=== PATIENT | male | born 1945 ===

== ENCOUNTER 2017-05-09 10:03 | Inpatient (IN) | payer MEDICARE ==
[2017-05-09] MEDS ORDERED: Iodixanol 320 MG/ML 100 ML BOTTLE IV ONE (10:44)
--- NOTE | 2017-05-09 10:50 | C.PDOC ---
History Of Present Illness 72 yr old male brought in via BLS, presents to the ER s/p an episode of confusion. According to family members, around 9:30am patient fell to the ground and became confused. Patient has history of high blood pressure, diabetes and was recently diagnosed with dementia. Upon arrival, patient appeared confused with expressive aphasia, mumbling words with right facial droop. Patient is moving all extremities. Code stroke was called. DR. Franklin suggested CT of head and CTA of head and neck. ROS was unable to be obtained. Time Seen by Provider: 05/09/17 10:09 Chief Complaint (Nursing): Altered Mental Status History Per: EMS, Family History/Exam Limitations: Clinical Condition Onset/Duration Of Symptoms: Sudden Onset Past Medical History Reviewed: Historical Data, Nursing Documentation, Vital Signs Vital Signs: Last Vital Signs Temp 97.2 F L 05/10/17 15:27 Pulse 73 05/10/17 15:27 Resp 20 05/10/17 15:27 BP 143/65 05/10/17 15:27 Pulse Ox 100 05/10/17 15:27 Family History: States: No Known Family Hx - Social History Hx Alcohol Use: (UNOBTAINABLE) Hx Substance Use: (UNOBTAINABLE) - Immunization History Hx Tetanus Toxoid Vaccination: (UNOBTAINABLE) Hx Influenza Vaccination: (UNOBTAINABLE) Hx Pneumococcal Vaccination: (UNOBTAINABLE) Review Of Systems Review Of Systems: ROS cannot be obtained secondary to pt's inabilty to answer questions. Physical Exam - Physical Exam Appears: Non-toxic, No Acute Distress, Other ((+) Right facial droop) Skin: Warm, Dry Head: Atraumatic, Normacephalic Cardiovascular: Rhythm Regular, No Murmur Respiratory: Normal Breath Sounds, No Rales, No Rhonchi, No Stridor, No Wheezing Extremity: Normal ROM, No Swelling Neurological/Psych: Inappropriate Response To Command, Expressive Aphasia ED Course And Treatment - Laboratory Results Result Diagrams: 05/09/17 11:09 05/10/17 07:23 ECG: Interpreted By Me, Viewed By Me ECG Rhythm: Sinus Rhythm ECG Interpretation: Normal Interpretation Of ECG: Normal intervals. Normal axis. No ST/T wave abnormalities. Rate From EC (BPM) - Other Rad CXR X-Ray: Viewed By Me, Read By Radiologist Interpretation: HISTORY: stroke. COMPARISON: None available. TECHNIQUE: Chest, one view. FINDINGS: Examination limited by habitus. LUNGS: No focal consolidation. Please note that chest x-ray has limited sensitivity for the detection of pulmonary masses. PLEURA: No significant pleural effusion identified. No definite pneumothorax . CARDIOVASCULAR: Heart size appears within normal limits. OSSEOUS STRUCTURES: Osseous demineralization. Degenerative changes of the spine and shoulders. Acromioclavicular arthropathy. VISUALIZED UPPER ABDOMEN: Unremarkable. OTHER FINDINGS: None. IMPRESSION: No focal consolidation, significant pleural effusion, or definite pneumothorax identified. - CT Scan/US CT - Head Other Rad Studies (CT/US): Read By Radiologist, Radiology Report Reviewed CT/US Interpretation: PROCEDURE: CT HEAD WITHOUT CONTRAST. HISTORY: Code Stroke. COMPARISON: None available. TECHNIQUE: Axial computed tomography images were obtained through the head/brain without intravenous contrast. Radiation dose: Total exam DLP = 3048.50 mGy-cm. This CT exam was performed using one or more of the following dose reduction techniques: Automated exposure control, adjustment of the mA and/or kV according to patient size, and/ or use of iterative reconstruction technique. Please note that due to patient motion artifact, the patient was scanned utilizing healed technique. Three separate runs were performed to accommodate for patient motion artifact. FINDINGS: HEMORRHAGE: No intracranial hemorrhage. BRAIN: No mass effect or edema. Mild diffuse atrophy consistent with patient age. No evidence of acute infarct. VENTRICLES: Unremarkable. No hydrocephalus. CALVARIUM: Unremarkable. PARANASAL SINUSES: Chronic sphenoid sinusitis. Left maxillary retention cyst/polyp. MASTOID AIR CELLS: Hypoplastic mastoid air cells. OTHER FINDINGS: None. IMPRESSION: No intracranial mass, hemorrhage or evidence of acute infarct. Limited examination due to patient motion and the necessity of utilizing helical technique. Age related atrophy. Chronic paranasal sinusitis and left maxillary of small retention cyst/polyp. Findings were discussed with Dr. Alvarado at 10:45 a.m. on 05/09/2017. CTA - Head & Neck Other Rad Studies (CT/US): Read By Radiologist, Radiology Report Reviewed CT/US Interpretation: PROCEDURE: CT Angiography of the Brain. HISTORY: stroke. COMPARISON: None available. TECHNIQUE: CT angiography of the intracranial arteries was performed. Coronal and sagittal maximum intensity projection reformated images were generated. This CT exam was performed using one or more of the following dose reduction techniques: Automated exposure control, adjustment of the mA and/or kV according to patient size, and/or use of iterative reconstruction technique. FINDINGS: INTERNAL CEREBRAL ARTERIES: Limited atherosclerotic plaque is seen in the cavernous internal carotid artery segments, right greater than left. The skull base, petrous, cavernous and supraclinoid segments are bilaterally patent. ANTERIOR CEREBRAL ARTERIES: Unremarkable. A1 and A2 segments are widely patent. Smaller distal branches unremarkable, as visualized. MIDDLE CEREBRAL ARTERIES: Unremarkable. M1 and M2 segments are widely patent. Perisylvian branches grossly symmetric. POSTERIOR CIRCULATION: Basilar Artery: Unremarkable. Distal Vertebral Arteries : Unremarkable. Posterior Cerebral Arteries: Unremarkable. Posterior Inferior Cerebellar Arteries: Unremarkable. NECK CTA RESULTS: Common carotid arteries: The bilateral common carotid appear widely patent from their origins to their bifurcations with no significant stenosis appreciated. No evidence to suggest common carotid artery dissection. Internal carotid arteries: No significant stenosis is appreciated throughout the cervical internal carotid artery segments bilaterally and there is no evidence of dissection either. Limited atherosclerotic plaque is seen at the origin of the left external carotid artery with none on the right. Vertebral arteries: The bilateral vertebral arteries appear normal in caliber from their origins to their junction with the basilar artery. Vertebrobasilar system appears neutral in dominance. No significant stenosis or definite pattern of dissection. Incidentally, the bilateral subclavian arteries are widely patent as well as the brachiocephalic artery. ANEURYSM/ VASCULAR MALFORMATIONS: None. OTHER FINDINGS: None. IMPRESSION: No significant stenosis is appreciated throughout the CT angiogram of the brain and neck. No definite arteriovascular malformation or aneurysm identified. NIHSS Stroke Scale - Date/Time Evaluation Performed Date Performed: 05/09/17 Time Performed: 10:15 When Was NIHSS Performed: Baseline - How Severe is the Stoke Level of Consciousness: 0=Alert LOC to Questions: 2=Neither correct LOC to commands: 2=Neither correct Best Gaze: 0=Normal Visual: 0=No visual loss Facial: 1=Minor asymmetry Motor Arm - Left: 0=No drift Motor Arm - Right: 0=No drift Motor Leg - Left: 0=No drift Motor Leg - Right: 0=No drift Limb Ataxia: 0=Absent Sensory: 0=Normal Best Language: 2=Severe aphasia Dysarthia: 1=Mild to moderate slurring Extinction & Inattention (Neglect): 0=Normal, no object Score: 8 Severity Of Stroke: 5-15= Moderate Stroke rTPA Inclusion/Exclusion - Refusal of Treatment Patient Refused Treatment: No - Inclusion Criteria for Altepase Patient is 18 years or Older: Yes Clinical DX Ischemic Stroke Cause Neurological Deficit: Yes Time of Onset Established Less Than 270 Mins Before TX Begin: Yes Risk/Benefit Discussed With Patient/Family Member Present: Yes - Exclusion Criteria for Altepase Uncontrolled Hypertension at Time of TX (SBP>185 or DBP>110): No Active Internal Bleeding: No Known Bleeding Diathesis: No Evidence Major Acute Infarct w/ Signs Greater Than 1/3 MCA: No Suspicion of Subarachnoid Bleed on PreTX Eval(CT: neg bleed): No - Warning to TPA With Conditions Following Conditions Weighed Against Anticipated Benefit: Yes Condition: Rapid Improvement, Seizure at Onset of Stroke Medical Decision Making Medical Decision Making: IMPRESSION: Seizure PLAN: * CT - Head * CTA - Head & Neck * CXR * EKG * Troponin * CBC * CMP * Ativan IVP * Haldol IVP * Keppra IVPB * Dextrose IVPB NOTE: * DR. Franklin came down to evaluate patient and requested patient to be started on Keppra 1000 mg IV and not a TPA condidate at the present time. * DR. Franklin believes patient had a seizure. Disposition Discussed With : Charlie Ferrari Doctor Will See Patient In The: Hospital Counseled Patient/Family Regarding: Studies Performed, Diagnosis, Need For Followup - Disposition Disposition: HOSPITALIZED Disposition Time: 13:49 Condition: FAIR - Clinical Impression Clinical Impression: Seizure, Syncope - Scribe Statement The provider has reviewed the documentation as recorded by the Nathanael Reyes Provider Attestation: All medical record entries made by the Nathanael were at my direction and personally dictated by me. I have reviewed the chart and agree that the record accurately reflects my personal performance of the history, physical exam, medical decision making, and the department course for this patient. I have also personally directed, reviewed, and agree with the discharge instructions and disposition.
--- NOTE | 2017-05-09 11:11 | CT ---
PROCEDURE: CT HEAD WITHOUT CONTRAST. HISTORY: Code Stroke COMPARISON: None available. TECHNIQUE: Axial computed tomography images were obtained through the head/brain without intravenous contrast. Radiation dose: Total exam DLP = 3048.50 mGy-cm. This CT exam was performed using one or more of the following dose reduction techniques: Automated exposure control, adjustment of the mA and/or kV according to patient size, and/or use of iterative reconstruction technique. Please note that due to patient motion artifact, the patient was scanned utilizing healed technique. Three separate runs were performed to accommodate for patient motion artifact. FINDINGS: HEMORRHAGE: No intracranial hemorrhage. BRAIN: No mass effect or edema. Mild diffuse atrophy consistent with patient age. No evidence of acute infarct. VENTRICLES: Unremarkable. No hydrocephalus. CALVARIUM: Unremarkable. PARANASAL SINUSES: Chronic sphenoid sinusitis. Left maxillary retention cyst/polyp. MASTOID AIR CELLS: Hypoplastic mastoid air cells. OTHER FINDINGS: None. IMPRESSION: No intracranial mass, hemorrhage or evidence of acute infarct. Limited examination due to patient motion and the necessity of utilizing helical technique. Age related atrophy. Chronic paranasal sinusitis and left maxillary of small retention cyst/polyp. Findings were discussed with Dr. Alvarado at 10:45 a.m. on 05/09/2017.
[2017-05-09 11:15] LABS: BASO % 0.5 % (0.0-2.0); EOS % 0.5 % (0.0-4.0); LYMPH # 1.1 K/uL (1.0-4.3); LYMPH % 18.5 % (20.0-40.0); MEAN CELL VOLUME 92.9 fL (80.0-94.0); MEAN CORPUSCULAR HEMOGLOBIN 30.3 pg (27.0-31.0); MEAN CORPUSCULAR HGB CONC 32.6 g/dL (33.0-37.0); MEAN PLATELET VOLUME 8.6 fL (7.2-11.7); MONO # 0.5 K/uL (0.0-0.8); MONO % 7.5 % (0.0-10.0); RED CELL DISTRIBUTION WIDTH 14.2 % (11.5-14.5)
--- NOTE | 2017-05-09 11:21 | RAD ---
HISTORY: stroke COMPARISON: None available. TECHNIQUE: Chest, one view. FINDINGS: Examination limited by habitus. LUNGS: No focal consolidation. Please note that chest x-ray has limited sensitivity for the detection of pulmonary masses. PLEURA: No significant pleural effusion identified. No definite pneumothorax . CARDIOVASCULAR: Heart size appears within normal limits. OSSEOUS STRUCTURES: Osseous demineralization. Degenerative changes of the spine and shoulders. Acromioclavicular arthropathy. VISUALIZED UPPER ABDOMEN: Unremarkable. OTHER FINDINGS: None. IMPRESSION: No focal consolidation, significant pleural effusion, or definite pneumothorax identified.
[2017-05-09 11:30] LABS: ALB/GLOB RATIO 1.5 (1.0-2.1); ALKALINE PHOSPHATASE 58 U/L (38-126); ALT/SGPT 37 U/L (21-72); AST/SGOT 26 U/L (17-59); BILIRUBIN,TOTAL 0.5 mg/dL (0.2-1.3); BLOOD UREA NITROGEN 40 mg/dL (9-20); CALCIUM 8.6 mg/dl (8.6-10.4); CARBON DIOXIDE 22 mmol/L (22-30); CHLORIDE 103 mmol/L (98-107); GFR AFRICAN-AMERICAN > 60; GLUCOSE,RANDOM 126 mg/dL (75-110); POTASSIUM 4.1 mmol/L (3.6-5.2); SODIUM 134 mmol/L (132-148); TOTAL PROTEIN 5.7 g/dL (6.3-8.3)
--- NOTE | 2017-05-09 11:45 | CT ---
PROCEDURE: CT Angiography of the Brain. HISTORY: stroke COMPARISON: None available. TECHNIQUE: CT angiography of the intracranial arteries was performed. Coronal and sagittal maximum intensity projection reformated images were generated. This CT exam was performed using one or more of the following dose reduction techniques: Automated exposure control, adjustment of the mA and/or kV according to patient size, and/or use of iterative reconstruction technique. FINDINGS: INTERNAL CEREBRAL ARTERIES: Limited atherosclerotic plaque is seen in the cavernous internal carotid artery segments, right greater than left. The skull base, petrous, cavernous and supraclinoid segments are bilaterally patent. ANTERIOR CEREBRAL ARTERIES: Unremarkable. A1 and A2 segments are widely patent. Smaller distal branches unremarkable, as visualized. MIDDLE CEREBRAL ARTERIES: Unremarkable. M1 and M2 segments are widely patent. Perisylvian branches grossly symmetric. POSTERIOR CIRCULATION: Basilar Artery: Unremarkable. Distal Vertebral Arteries: Unremarkable. Posterior Cerebral Arteries: Unremarkable. Posterior Inferior Cerebellar Arteries: Unremarkable. NECK CTA RESULTS: Common carotid arteries: The bilateral common carotid appear widely patent from their origins to their bifurcations with no significant stenosis appreciated. No evidence to suggest common carotid artery dissection. Internal carotid arteries: No significant stenosis is appreciated throughout the cervical internal carotid artery segments bilaterally and there is no evidence of dissection either. Limited atherosclerotic plaque is seen at the origin of the left external carotid artery with none on the right. Vertebral arteries: The bilateral vertebral arteries appear normal in caliber from their origins to their junction with the basilar artery. Vertebrobasilar system appears neutral in dominance. No significant stenosis or definite pattern of dissection. Incidentally, the bilateral subclavian arteries are widely patent as well as the brachiocephalic artery. ANEURYSM/ VASCULAR MALFORMATIONS: None. OTHER FINDINGS: None. IMPRESSION: No significant stenosis is appreciated throughout the CT angiogram of the brain and neck. No definite arteriovascular malformation or aneurysm identified.
--- NOTE | 2017-05-09 11:58 | CP.PCM.CON ---
History of Present Illness - History of Present Illness History of Present Illness: Mr. Rider is a 72-year-old man with a recent diagnosis of vascular dementia , diabetes, hypertension, who was brought in to the ED after his daughter noticed that he collapsed, lost consciousness and became rigid. EMS arrived that noticed a right facial droop. In the ED, the patient was confused and not conversant. He was not following commands, and a code stroke was called. Due to the confusion and mental status abnormalities, along with the facial droop, he was given an NIHSS of 8. He went for CT of the head, which did not show any acute findings. He was agitated and received Haldol. A CTA was done and did not show any occlusions. The patient improved significantly after imaging. He was able to communicate, did not have facial droop, followed simple commands and moved all extremities. He was still having some confusion when I saw him, but was essentially close to baseline. tPA was not administered due to rapid improvement and the fact that the clinical picture is more consistent with seizure with post-ictal state, rather than stroke. Review of Systems - Review of Systems Systems not reviewed;Unavailable: Altered Mental Status All systems: reviewed and no additional remarkable complaints except Past Patient History - Past Social History Smoking Status: UNOBTAINAB - PSYCHIATRIC Hx Substance Use: (UNOBTAINABLE) Meds Allergies/Adverse Reactions: Allergies Allergy/AdvReac Type Severity Reaction Status Date / Time No Known Allergies Allergy Verified 05/09/17 11:19 - Medications Medications: Current Medications Levetiracetam 1,000 mg/ Sodium (Chloride) 110 mls @ 420 mls/hr IVPB Q12H ALBERTO Physical Exam - Constitutional Appears: Confused - Head Exam Head Exam: ATRAUMATIC, NORMAL INSPECTION, NORMOCEPHALIC - Eye Exam Eye Exam: EOMI, Normal appearance, PERRL - ENT Exam ENT Exam: Mucous Membranes Moist, Normal Exam - Neck Exam Neck exam: Positive for: Normal Inspection - Respiratory Exam Respiratory Exam: Clear to Auscultation Bilateral, NORMAL BREATHING PATTERN - Cardiovascular Exam Cardiovascular Exam: REGULAR RHYTHM, +S1, +S2 - GI/Abdominal Exam GI & Abdominal Exam: Normal Bowel Sounds, Soft. absent: Tenderness - Rectal Exam Rectal Exam: Deferred - Extremities Exam Extremities exam: Positive for: normal inspection - Neurological Exam Neurological exam: Alert, Altered, CN II-XII Intact, Reflexes Normal Additional comments: NIHSS = 2 (minor confusion and language difficulty) - Expanded Neurological Exam Expanded Patient oriented to: person Speech: Expressive Aphasia Cranial nerves: EOM's Intact: Normal, Facial Sensation: Normal, Gag Reflex: Normal, Tongue Deviation: Normal Ataxia: No Cerebellar Function: Finger to Nose: Normal Upper motor neuron: Babinski Sign: Normal Sensory exam: Lower Extremity Light Touch: Normal, Lower Extremity Pin Prick: Normal, Upper Extremity Light Touch: Normal, Upper Extremity Pin Prick: Normal Neuro motor strength exam: Left Upper Extremity: 5, Right Upper Extremity: 5, Left Lower Extremity: 5, Right Lower Extremity: 5 DTR: Achilles Tendon Left: 2+, Achilles Tendon Right: 2+, Bicep Left: 2+, Bicep Right: 2+, Brachioradialis Left: 2+, Brachioradialis Right: 2+, Patellar Left: 2 +, Patellar Right: 2+, Tricep Left: 2+, Tricep Right: 2+ Results - Vital Signs Recent Vital Signs: Last Vital Signs Temp 98.1 F 05/09/17 10:05 Pulse 81 05/09/17 11:42 Resp 14 05/09/17 11:42 BP 124/61 05/09/17 11:42 Pulse Ox 100 05/09/17 11:42 - Labs Result Diagrams: 05/09/17 11:09 05/09/17 11:09 Labs: Laboratory Results - last 24 hr 05/09/17 05/09/17 05/09/17 10:07 11:09 11:09 WBC 6.0 RBC 3.56 L Hgb 10.8 L Hct 33.0 L MCV 92.9 MCH 30.3 MCHC 32.6 L RDW 14.2 Plt Count 144 MPV 8.6 Neut % (Auto) 73.0 Lymph % (Auto) 18.5 L Nash % (Auto) 7.5 Eos % (Auto) 0.5 Baso % (Auto) 0.5 Neut # 4.4 Lymph # 1.1 Nash # 0.5 Eos # 0.0 Baso # 0.0 PT 11.0 INR 1.0 APTT 32 Sodium Potassium Chloride Carbon Dioxide Anion Gap BUN Creatinine Est GFR ( Amer) Est GFR (Non-Af Amer) POC Glucose (mg/dL) 167 H Random Glucose Hemoglobin A1c Calcium Total Bilirubin AST ALT Alkaline Phosphatase Total Creatine Kinase CK-MB (Mass) Troponin I Total Protein Albumin Globulin Albumin/Globulin Ratio 05/09/17 05/09/17 11:09 11:13 WBC RBC Hgb Hct MCV MCH MCHC RDW Plt Count MPV Neut % (Auto) Lymph % (Auto) Nash % (Auto) Eos % (Auto) Baso % (Auto) Neut # Lymph # Nash # Eos # Baso # PT INR APTT Sodium 134 Potassium 4.1 Chloride 103 Carbon Dioxide 22 Anion Gap 13 BUN 40 H Creatinine 1.3 Est GFR ( Amer) > 60 Est GFR (Non-Af Amer) 54 POC Glucose (mg/dL) Random Glucose 126 H Hemoglobin A1c 8.4 H Calcium 8.6 Total Bilirubin 0.5 AST 26 ALT 37 Alkaline Phosphatase 58 Total Creatine Kinase 302 H CK-MB (Mass) 5.25 H Troponin I < 0.0120 Total Protein 5.7 L Albumin 3.4 L Globulin 2.3 Albumin/Globulin Ratio 1.5 Assessment & Plan (1) Seizure Assessment and Plan: The description of collapse, loss of consciousness, subsequent generalized rigidity, with confusion, is most consistent with seizure and post-ictal state. The history of dementia could predispose to seizures. I recommend the followin. Keppra 1000 mg IV now, then continue 500 mg PO BID 2. EEG awake and drowsy for 30 mins 3. MRI of the brain with and without contrast 4. Continue aspirin 81 mg daily, and start Plavix 75 mg daily for 21 days per the CHANCE trial and then continue Plavix 75 mg daily indefinitly while stopping aspirin (after 3 weeks) 5. PT/OT eval and treat 6. DVT Px 7. Echocardiogram with bubble study 8. Admit to telemetry 9. Case management consult 10. Hydration with NS at 100 mL/hr Thank you. Status: Acute Priority: High
[2017-05-09] MEDS ORDERED: levETIRAcetam 1,000 MG in Sodium Chloride 0.9% 100 ML IVPB SCH (12:00)
[2017-05-09 15:45] LABS: CHOLESTEROL 130 mg/dL (0-199)
[2017-05-09 15:55] VITALS: RESP 20
[2017-05-09] MEDS: (Novolog) Insulin Aspart, Recombinant 100 u/ml 10 ml vial SC SCH ×2 (17:21→21:09)
--- NOTE | 2017-05-09 22:42 | CP.PCM.HP ---
History of Present Illness - History of Present Illness History of Present Illness: Mr. Rider is a 72-year-old man with a recent diagnosis of vascular dementia , diabetes, hypertension, who was brought in to the ED after his daughter noticed that he collapsed, lost consciousness and became rigid. EMS arrived that noticed a right facial droop. In the ED, the patient was confused and not conversant. He was not following commands, and a code stroke was called. Due to the confusion and mental status abnormalities, along with the facial droop, he was given an NIHSS of 8. He went for CT of the head, which did not show any acute findings. He was agitated and received Haldol. A CTA was done and did not show any occlusions. The patient improved significantly after imaging. He was able to communicate, did not have facial droop, followed simple commands and moved all extremities. He was still having some confusion when I saw him, but was essentially close to baseline. tPA was not administered due to rapid improvement and the fact that the clinical picture is more consistent with seizure with post-ictal state, rather than stroke. Past Patient History - Past Medical History & Family History Past Medical History?: Yes - Past Social History Smoking Status: Never Smoked - CARDIAC Hx Cardiac Disorders: Yes Hx Hypercholesterolemia: Yes - PULMONARY Hx Respiratory Disorders: No - NEUROLOGICAL Hx Neurological Disorder: Yes Hx Dementia: Yes - HEENT Hx HEENT Problems: Yes Hx Cataracts: Yes - RENAL Hx Chronic Kidney Disease: No - ENDOCRINE/METABOLIC Hx Endocrine Disorders: Yes Hx Diabetes Mellitus Type 2: Yes - HEMATOLOGICAL/ONCOLOGICAL Hx Blood Disorders: No - INTEGUMENTARY Hx Dermatological Problems: No - MUSCULOSKELETAL/RHEUMATOLOGICAL Hx Musculoskeletal Disorders: Yes Hx Falls: Yes (ONLY THIS MORNING) - GASTROINTESTINAL Hx Gastrointestinal Disorders: No - GENITOURINARY/GYNECOLOGICAL Hx Genitourinary Disorders: No - PSYCHIATRIC Hx Substance Use: No - SURGICAL HISTORY Hx Surgeries: Yes Hx Cataract Extraction: Yes - ANESTHESIA Hx Anesthesia: Yes Hx Anesthesia Reactions: No Meds Allergies/Adverse Reactions: Allergies Allergy/AdvReac Type Severity Reaction Status Date / Time No Known Allergies Allergy Verified 05/09/17 11:19 Results - Vital Signs Recent Vital Signs: Last Vital Signs Temp 97.4 F L 05/09/17 15:55 Pulse 70 05/09/17 15:55 Resp 20 05/09/17 15:55 BP 137/54 L 05/09/17 15:55 Pulse Ox 100 05/09/17 15:55 - Labs Result Diagrams: 05/09/17 11:09 05/09/17 11:09 Labs: Laboratory Results - last 24 hr 05/09/17 05/09/17 05/09/17 10:07 11:09 11:09 WBC 6.0 RBC 3.56 L Hgb 10.8 L Hct 33.0 L MCV 92.9 MCH 30.3 MCHC 32.6 L RDW 14.2 Plt Count 144 MPV 8.6 Neut % (Auto) 73.0 Lymph % (Auto) 18.5 L Bulloch % (Auto) 7.5 Eos % (Auto) 0.5 Baso % (Auto) 0.5 Neut # 4.4 Lymph # 1.1 Bulloch # 0.5 Eos # 0.0 Baso # 0.0 PT 11.0 INR 1.0 APTT 32 Sodium Potassium Chloride Carbon Dioxide Anion Gap BUN Creatinine Est GFR ( Amer) Est GFR (Non-Af Amer) POC Glucose (mg/dL) 167 H Random Glucose Hemoglobin A1c Calcium Total Bilirubin AST ALT Alkaline Phosphatase Total Creatine Kinase CK-MB (Mass) Troponin I Troponin I, Quant Total Protein Albumin Globulin Albumin/Globulin Ratio Triglycerides Cholesterol LDL Cholesterol Direct HDL Cholesterol Blood Type Antibody Screen 05/09/17 05/09/17 05/09/17 11:09 11:12 11:13 WBC RBC Hgb Hct MCV MCH MCHC RDW Plt Count MPV Neut % (Auto) Lymph % (Auto) Bulloch % (Auto) Eos % (Auto) Baso % (Auto) Neut # Lymph # Bulloch # Eos # Baso # PT INR APTT Sodium 134 Potassium 4.1 Chloride 103 Carbon Dioxide 22 Anion Gap 13 BUN 40 H Creatinine 1.3 Est GFR ( Amer) > 60 Est GFR (Non-Af Amer) 54 POC Glucose (mg/dL) Random Glucose 126 H Hemoglobin A1c 8.4 H Calcium 8.6 Total Bilirubin 0.5 AST 26 ALT 37 Alkaline Phosphatase 58 Total Creatine Kinase 302 H CK-MB (Mass) 5.25 H Troponin I Cancelled Troponin I, Quant 0.0120 Total Protein 5.7 L Albumin 3.4 L Globulin 2.3 Albumin/Globulin Ratio 1.5 Triglycerides 44 Cholesterol 130 LDL Cholesterol Direct 57 HDL Cholesterol 53 Blood Type Antibody Screen 05/09/17 05/09/17 05/09/17 11:19 16:32 21:06 WBC RBC Hgb Hct MCV MCH MCHC RDW Plt Count MPV Neut % (Auto) Lymph % (Auto) Bulloch % (Auto) Eos % (Auto) Baso % (Auto) Neut # Lymph # Bulloch # Eos # Baso # PT INR APTT Sodium Potassium Chloride Carbon Dioxide Anion Gap BUN Creatinine Est GFR ( Amer) Est GFR (Non-Af Amer) POC Glucose (mg/dL) 145 H 160 H Random Glucose Hemoglobin A1c Calcium Total Bilirubin AST ALT Alkaline Phosphatase Total Creatine Kinase CK-MB (Mass) Troponin I Troponin I, Quant Total Protein Albumin Globulin Albumin/Globulin Ratio Triglycerides Cholesterol LDL Cholesterol Direct HDL Cholesterol Blood Type A POSITIVE Antibody Screen Negative
[2017-05-10 08:10] LABS: BLOOD UREA NITROGEN 25 mg/dL (9-20); CALCIUM 8.4 mg/dl (8.6-10.4); CARBON DIOXIDE 27 mmol/L (22-30); CHLORIDE 101 mmol/L (98-107); GFR AFRICAN-AMERICAN > 60; GLUCOSE,RANDOM 270 mg/dL (75-110); POTASSIUM 4.1 mmol/L (3.6-5.2); SODIUM 135 mmol/L (132-148)
[2017-05-10] MEDS ORDERED: Sodium Chloride 0.9% 1,000 ML IV SCH (08:15)
[2017-05-10] MEDS: (Novolog) Insulin Aspart, Recombinant 100 u/ml 10 ml vial SC SCH ×4 (08:30→22:24)
--- NOTE | 2017-05-10 08:48 | CP.PCM.PN ---
Subjective - Date & Time of Evaluation Date of Evaluation: 05/10/17 Time of Evaluation: 08:43 - Subjective Subjective: Mr. Rider was seen and examined at the bedside. He is alert, knows his name , but not aware of time and place. He states of being in his house, but is aware of his friend at the bedside. He can follow simple commands such as opening his mouth, raising bilateral lower and upper extremities. He is on 1:1 sitter for patient safety. There ws no untoward events overnight. Objective - Vital Signs/Intake and Output Vital Signs (last 24 hours): Temp Pulse Resp BP Pulse Ox 97.5 F L 71 20 155/56 H 98 05/10/17 08:01 05/10/17 08:01 05/10/17 08:01 05/10/17 08:01 05/10/17 08:01 Intake and Output: 05/10/17 05/10/17 06:59 18:59 Intake Total 320 Balance 320 - Medications Medications: Current Medications Acetaminophen (Tylenol 325mg Tab) 650 mg PO Q6 PRN PRN Reason: Pain, moderate (4-7) Last Admin: 05/09/17 21:12 Dose: 650 mg Glimepiride (Amaryl) 4 mg PO BID [facility] Last Admin: 05/09/17 19:17 Dose: 4 mg Sodium Chloride (Sodium Chloride 0.9%) 1,000 mls @ 50 mls/hr IV .Q20H [facility] Insulin Aspart (Novolog) 0 unit SC ACHS [facility] PRN Reason: Protocol Last Admin: 05/09/17 21:09 Dose: Not Given Levetiracetam (Keppra) 500 mg PO BID [facility] Lorazepam (Ativan) 1 mg IVP Q6H PRN PRN Reason: breakthrough seizure Memantine (Namenda) 10 mg PO BID [facility] Last Admin: 05/09/17 19:17 Dose: 10 mg Pantoprazole Sodium (Protonix Ec Tab) 40 mg PO DAILY [facility] Rosuvastatin Calcium (Crestor) 5 mg PO HS [facility] Last Admin: 05/09/17 21:12 Dose: 5 mg Sitagliptin Phosphate (Januvia) 100 mg PO DAILY [facility] - Labs Labs: 05/09/17 11:09 05/10/17 07:23 PT 11.0 SECONDS (9.7-12.2) 05/09/17 11:09 INR 1.0 05/09/17 11:09 APTT 32 SECONDS (21-34) 05/09/17 11:09 - Constitutional Appears: No Acute Distress - Head Exam Head Exam: ATRAUMATIC - Neurological Exam Neurological Exam: Awake Neuro motor strength exam: Left Upper Extremity: 5, Right Upper Extremity: 5, Left Lower Extremity: 5, Right Lower Extremity: 5 Additional comments: He is able to state his name, follow simple commands such as opening his mouth and raising bilateral lower and upper extremities. Assessment and Plan (1) Seizure Assessment & Plan: Case discussed with Dr. Franklin, will change IV keppra 1000 mg BID to 500 mg PO BID today. Follow up MRI of the brain and echocardiogram. Continue all current medical, physical, and occupational therapies. Status: Acute
[2017-05-10] MEDS ORDERED: Pantoprazole 40 mg EC Tab PO SCH (10:00)
--- NOTE | 2017-05-10 11:02 | CARD ---
APPROVED REPORT EKG Measurement Heart [id number] <Conclusion> Normal sinus rhythm Normal ECG
[2017-05-10 16:30] VITALS: BP 143/65; PULSE 73; TEMP 97.2; O2SAT 100
--- NOTE | 2017-05-10 17:35 | CP.PCM.PN ---
Subjective - Date & Time of Evaluation Date of Evaluation: 05/10/17 Time of Evaluation: 12:00 - Subjective Subjective: patient seen today, awake, alert, oriented to person , denies any complaints No overnight events reported by RN Objective - Vital Signs/Intake and Output Vital Signs (last 24 hours): Temp Pulse Resp BP Pulse Ox 97.2 F L 73 20 143/65 100 05/10/17 15:27 05/10/17 15:27 05/10/17 15:27 05/10/17 15:27 05/10/17 15:27 Intake and Output: 05/10/17 05/10/17 06:59 18:59 Intake Total 320 Balance 320 - Medications Medications: Current Medications Acetaminophen (Tylenol 325mg Tab) 650 mg PO Q6 PRN PRN Reason: Pain, moderate (4-7) Last Admin: 05/09/17 21:12 Dose: 650 mg Glimepiride (Amaryl) 4 mg PO BID [facility] Last Admin: 05/10/17 09:42 Dose: 4 mg Sodium Chloride (Sodium Chloride 0.9%) 1,000 mls @ 50 mls/hr IV .Q20H [facility] Last Admin: 05/10/17 08:45 Dose: 50 mls/hr Insulin Aspart (Novolog) 0 unit SC ACHS [facility] PRN Reason: Protocol Last Admin: 05/10/17 12:35 Dose: 2 unit Levetiracetam (Keppra) 500 mg PO BID [facility] Last Admin: 05/10/17 09:45 Dose: 500 mg Lorazepam (Ativan) 1 mg IVP Q6H PRN PRN Reason: breakthrough seizure Last Admin: 05/10/17 16:02 Dose: 1 mg Memantine (Namenda) 10 mg PO BID [facility] Last Admin: 05/10/17 09:42 Dose: 10 mg Pantoprazole Sodium (Protonix Ec Tab) 40 mg PO DAILY [facility] Last Admin: 05/10/17 09:45 Dose: 40 mg Rosuvastatin Calcium (Crestor) 5 mg PO HS [facility] Last Admin: 05/09/17 21:12 Dose: 5 mg Sitagliptin Phosphate (Januvia) 100 mg PO DAILY [facility] Last Admin: 05/10/17 09:45 Dose: 100 mg - Labs Labs: 05/09/17 11:09 05/10/17 07:23 PT 11.0 SECONDS (9.7-12.2) 05/09/17 11:09 INR 1.0 05/09/17 11:09 APTT 32 SECONDS (21-34) 05/09/17 11:09 Assessment and Plan - Assessment and Plan (Free Text) Assessment: A/P 72 yr old male admitted with confusion after sustained a fall at home / sizure CT- head- negative vta- negative EEG- done , result pending pt started on kepra by neurologist MRI- could done secondary to agitation even with sedation seen by neurology this am [employer] , cleared for discharge after MRI Family wants to take pt home today , states will do MRI out pt ( pt seen Dr. Walters in the past) seen by Dr. Ferrari
--- NOTE | 2017-05-10 19:51 | CON ---
DATE: 05/10/2017 HISTORY OF PRESENT ILLNESS: A 72-year-old gentleman who was brought in with a history of possible CVA. CT of the head and CTA was unremarkable. Neurology consultation was done. The patient is being admitted to Dr. Ferrari. The patient is known to me over past few years studies and diagnoses of hypertension, diabetes, and last time I saw was 2 to 3 years ago and had some memory loss. He is diabetic being followed by Dr. Best. MEDICATIONS: At home include Januvia 100 mg, glimepiride 4 mg, Lantus, Namenda, , Zetia. REVIEW OF SYSTEMS: Mild fatigue. No chest pain. No shortness of breath. No PND. No ankle edema. No bleeding disorders. No hematemesis. No melena. No history of seizures in the past. PAST MEDICAL HISTORY: History of hypertension and diabetes. FAMILY HISTORY: Positive for diabetes and hypertension. PERSONAL HISTORY: Never smoked. No EtOH abuse. ALLERGIES: DENIED. PHYSICAL EXAMINATION: GENERAL: Shows elderly gentleman who is conscious, alert. Does not remember my name. VITAL SIGNS: He is 5 feet 2 inches and weighs 121 pounds. His blood pressure is 132/50, heart rate of 70, respiratory rate of 20, afebrile. HEENT: Normal. NECK: Supple. LUNGS: Clear. CARDIAC: Normal PMI. S1 and S2 is normal with no gallops, soft early systolic murmur in mitral area. ABDOMEN: Soft, nontender. EXTREMITIES: No cyanosis, clubbing, or edema. Distal pulses are intact. Moves all 4 extremities. LABORATORY DATA: Shows hemoglobin of 10.8, potassium is 4.1, BUN is 40, creatinine is 1.3, repeat BUN is 25, creatinine is 1.2, blood sugar is elevated. Chest x-ray and CT was unremarkably. EKG is not available for me to review. ASSESSMENT: A 72-year-old gentleman with history of possible seizure, syncope, hypertension, diabetes. PLAN: At this point is to obtain a lipid profile, thyroid profile and we will obtain echocardiogram. No specific treatment is recommended cardiac villafana at this point. I thank you, kindly admit, follow as needed. To Higuera MD [facility] # [id number]
--- NOTE | 2017-05-10 23:35 | CP.PCM.PN ---
Subjective - Date & Time of Evaluation Date of Evaluation: 05/10/17 Time of Evaluation: 19:00 - Subjective Subjective: pt started on kepra by neurologist MRI- could done secondary to agitation even with sedation seen by neurology this am , cleared for discharge after MRI Family wants to take pt home today , states will do MRI out pt ( pt seen Dr. Walters in the past) Objective - Vital Signs/Intake and Output Vital Signs (last 24 hours): Temp Pulse Resp BP Pulse Ox 97.2 F L 73 20 143/65 100 05/10/17 15:27 05/10/17 15:27 05/10/17 15:27 05/10/17 15:27 05/10/17 15:27 Intake and Output: 05/10/17 05/11/17 18:59 06:59 Intake Total 350 Balance 350 - Medications Medications: Current Medications Acetaminophen (Tylenol 325mg Tab) 650 mg PO Q6 PRN PRN Reason: Pain, moderate (4-7) Last Admin: 05/09/17 21:12 Dose: 650 mg Glimepiride (Amaryl) 4 mg PO BID [facility] Last Admin: 05/10/17 18:59 Dose: 4 mg Sodium Chloride (Sodium Chloride 0.9%) 1,000 mls @ 50 mls/hr IV .Q20H [facility] Last Admin: 05/10/17 08:45 Dose: 50 mls/hr Insulin Aspart (Novolog) 0 unit SC ACHS [facility] PRN Reason: Protocol Last Admin: 05/10/17 22:24 Dose: Not Given Levetiracetam (Keppra) 500 mg PO BID [facility] Last Admin: 05/10/17 18:59 Dose: 500 mg Lorazepam (Ativan) 1 mg IVP Q6H PRN PRN Reason: breakthrough seizure Last Admin: 05/10/17 16:02 Dose: 1 mg Memantine (Namenda) 10 mg PO BID [facility] Last Admin: 05/10/17 19:00 Dose: Not Given Pantoprazole Sodium (Protonix Ec Tab) 40 mg PO DAILY [facility] Last Admin: 05/10/17 09:45 Dose: 40 mg Rosuvastatin Calcium (Crestor) 5 mg PO HS [facility] Last Admin: 05/10/17 22:23 Dose: Not Given Sitagliptin Phosphate (Januvia) 100 mg PO DAILY [facility] Last Admin: 05/10/17 09:45 Dose: 100 mg - Labs Labs: 05/09/17 11:09 05/10/17 07:23 PT 11.0 SECONDS (9.7-12.2) 05/09/17 11:09 INR 1.0 05/09/17 11:09 APTT 32 SECONDS (21-34) 05/09/17 11:09 Assessment and Plan (1) Seizure Status: Acute (2) Syncope Status: Acute - Assessment and Plan (Free Text) Plan: A/P 72 yr old male admitted with confusion after sustained a fall at home / sizure CT- head- negative vta- negative EEG- done , result pending
--- NOTE | 2017-05-13 20:36 | CARD ---
APPROVED REPORT EXAM: Two-dimensional and M-mode echocardiogram with Doppler and color Doppler. Other Information Quality : Good[employer] : INDICATION Syncope RISK FACTORS Hypertension Diabetes 2D DIMENSIONS IVSd0.9 (0.7-1.1cm)LVDd3.6 (3.9-5.9cm) PWd1.0 (0.7-1.1cm)LVDs1.8 (2.5-4.0cm) FS (%) 49.3 %LVEF (%)81.5 (>50%) M-Mode DIMENSIONS Left Atrium (MM)3.15 (2.5-4.0cm)Aortic Root2.92 (2.2-3.7cm) Aortic Cusp Exc.1.88 (1.5-2.0cm) Mitral Valve MV E Atcolsqe39.1cm/sMV A Jaelgulg330.5cm/sE/A ratio0.8 TDI E/Lateral E'0.0E/Medial E'0.0 Tricuspid Valve TR Peak [id number]/sTR Peak Gr.[id number] LEFT VENTRICLE The left ventricle is normal size. There is normal left ventricular wall thickness. The left ventricular function is normal. The left ventricular ejection fraction is within the normal range. No regional wall motion abnormalities noted. Transmitral Doppler flow pattern is Grade I-abnormal relaxation pattern. No left ventricle thrombus noted on this study. There is no ventricular septal defect visualized. There is no left ventricular aneurysm. There is no mass noted in the left ventricle. RIGHT VENTRICLE The right ventricle is normal size. There is normal right ventricular wall thickness. The right ventricular systolic function is normal. ATRIA The left atrium size is normal. The right atrium size is normal. The interatrial septum is intact with no evidence for an atrial septal defect. AORTIC VALVE The aortic valve is normal in structure and function. No aortic regurgitation is present. There is no aortic valvular stenosis. There is no aortic valvular vegetation. MITRAL VALVE The mitral valve is normal in structure and function. There is no evidence of mitral valve prolapse. There is no mitral valve stenosis. Mitral regurgitation is mild. TRICUSPID VALVE The tricuspid valve is normal in structure and function. There is mild tricuspid regurgitation. There is no tricuspid valve prolapse or vegetation. There is no tricuspid valve stenosis. PULMONIC VALVE The pulmonary valve is normal in structure and function. There is mild pulmonic valvular regurgitation. There is no pulmonic valvular stenosis. GREAT VESSELS The aortic root is normal in size. The ascending aorta is normal in size. The pulmonary artery is normal. The IVC is normal in size and collapses >50% with inspiration. PERICARDIAL EFFUSION The pericardium appears normal. There is no pleural effusion. <Conclusion> The left ventricular function is normal. The left ventricular ejection fraction is within the normal range. Transmitral Doppler flow pattern is Grade I-abnormal relaxation pattern. Mitral regurgitation is mild. There is mild tricuspid regurgitation. There is mild pulmonic valvular regurgitation.
== END 2017-05-10 23:45 | disposition home or self-care (01) | DRG 101 ==
LOC: C.ER 10:03 → C.6T 13:47
PROVIDERS: ADMIT Internal Medicine; ATTEND Internal Medicine
DX: R56.9 Unspecified convulsions (principal); F01.50 Vascular dementia, unspecified severity, without behavioral disturbance, psychotic disturbance, mood disturbance, and anxiety; E11.9 Type 2 diabetes mellitus without complications; I10 Essential (primary) hypertension; R55 Syncope and collapse; R29.810 Facial weakness; E78.00 Pure hypercholesterolemia, unspecified; R41.0 Disorientation, unspecified; Z79.4 Long term (current) use of insulin